=== PATIENT | male | born 1980 | race Two or more races ===

== ENCOUNTER 2021-05-05 15:40 | Emergency (ER) | payer OTHER ==
[2021-05-05 16:13] LABS: RED BLOOD COUNT 4.66 M/UL (4.20-5.50); WHITE BLOOD COUNT 12.4 K/UL (4.5-11.0)
[2021-05-05 16:34] LABS: BUN/CREATININE RATIO 23 (0-10)
== END 2021-05-05 20:05 | disposition home or self-care (01) ==
LOC: ER1 15:40
PROVIDERS: Physician Assistant
DX: U07.1 COVID-19 (principal); F17.200 Nicotine dependence, unspecified, uncomplicated; E11.9 Type 2 diabetes mellitus without complications
CPT/HCPCS: 36600; 71045; 80053; 82550; 82553; 82803; 83605; 83874; 84484; 85025; 85379; 87040; 93005; 99284; U0002